=== PATIENT | female | born 1975 | race African-American/Black ===

== ENCOUNTER 2021-01-18 13:39 | Emergency (ER) | payer MEDICAID ==
[~2021-01-18] VITALS: Ht 177.8 cm; Wt 104.5 kg
--- NOTE | 2021-01-18 13:58 | NUR ---
BIB EMS AFTER PT HAD PANIC ATTACK. PT STATES SHE HAS HX ANXIETY AND FELT CLAUSTROPHOBIC AND ANXIOUS. ATTEMPTED TO GET OUT OF HER CAR AND WALK BUT THEN FELT LIKE SHE WAS DYING AND CALLED 911. PT WAS GIVEN 2 MG VERSED IM BY EMS GEOLOGIST STATES SHE FEELS MUCH BETTER AFTER. VS GEOLOGIST HR 102, BP 170/100, 99% RA. PT RESTING ON GURNEY. NADN. MONITORS APPLIED. BP NOTED TO BE ELEVATED. DENIES HTN HX. STATES SHE IS STILL MILDLY ANXIOUS. WILL REASSESS.
--- NOTE | 2021-01-18 14:09 | NUR ---
ERP DR. LÓPEZ AT BEDSIDE FOR EVAL.
[2021-01-18] MEDS ORDERED: DIAZEPAM 5 MG TABLET ONE (14:15)
[2021-01-18] MEDS ORDERED: DIAZEPAM 5 MG TABLET PO ONE (14:30)
[2021-01-18] MEDS ORDERED: PLEASE ENTER ALLERGIES MC SCH (14:30)
[2021-01-18 14:31] LABS: BASOPHILS % (AUTO) 1 % (0-1); EOSINOPHILS % (AUTO) 1 % (1-7); LYMPHOCYTES % (AUTO) 23 % (22-44); MEAN CORPUSCULAR HEMOGLOBIN 25.4 pg (27.0-34.8); MEAN CORPUSCULAR HGB CONC 31.8 g/dL (32.4-35.8); MEAN PLATELET VOLUME 8.8 fL (7.4-10.4); MONOCYTES % (AUTO) 9 % (2-9); NEUTROPHILS % (AUTO) 66 % (42-75); PLATELET COUNT 294 x10^3/uL (130-400); RED BLOOD COUNT 4.23 x10^6/uL (3.82-5.3); RED CELL DISTRIBUTION WIDTH 17.5 % (9.6-15.2)
[2021-01-18 14:35] LABS: MD MORPH REVIEW ONLY
--- NOTE | 2021-01-18 14:36 | NUR ---
PT BP REMAINS ELEVATED AT 171/117. ERP DR. LÓPEZ MADE AWARE.
[2021-01-18 14:42] LABS: ALBUMIN 3.6 g/dL (3.4-5.0); ANION GAP 5 mmol/L (5-15); CALCIUM 8.8 mg/dL (8.5-10.1); CHLORIDE 104 mmol/L (98-107)
[2021-01-18 14:43] LABS: CREATININE 0.75 mg/dL (0.55-1.02)
[2021-01-18 14:55] VITALS: BP 150/92
[2021-01-18 15:22] LABS: ANISOCYTOSIS 1+; HYPOCHROMIA 1+; MICROCYTOSIS 1+; POLYCHROMASIA 1+
[2021-01-18 15:26] LABS: <PLATELET ESTIMATE> ADEQUATE; <PLT MORPHOLOGY> NORMAL PLT MORPH
== END 2021-01-18 15:14 | disposition home or self-care (01) ==
LOC: ED 15:10
DX: F41.1 Generalized anxiety disorder (principal); I10 Essential (primary) hypertension; R94.31 Abnormal electrocardiogram [ECG] [EKG]
CPT/HCPCS: 36415; 80048; 82040; 85025; 93005; 99284